=== PATIENT | male | born 1985 | race Caucasian/White ===

== ENCOUNTER 2017-06-26 19:56 | Emergency (ER) | payer OTHER ==
[~2017-06-26] VITALS: Ht 182.8 cm; Wt 81.6 kg
--- NOTE | ~2017-06-26 | EKG ---
[place], [place] ELECTROCARDIOGRAM REPORT NAME: GARCÍA LINDA UNIT #: [id number] ROOM: DOCTOR: CARMEN THRASHER BIRTHDATE: [birth year] DOS: 06/26/2017 TIME: 2000 hours. Normal sinus rhythm at 85 beats per minute. T-wave inversion in 1 to V3 was present and may be a normal variant; however, possibility. No previous tracing is available for comparison. Carmen Thrasher NP CM:EKGRPT:ELECTROCARDIOGRAM REPORT [id number] CARMEN THRASHER
[2017-06-26 20:21] LABS: BASO # 0.1 10*3/uL (0.0-0.1); BASO % 0.8 % (0.0-1.0); EOS # 0.5 10*3/uL (0.0-0.4); EOS % 7.8 % (1.0-4.0); HEMATOCRIT 26.4 % (42.0-52.0); HEMOGLOBIN 7.4 g/dl (14.0-18.0); LYMPH # 1.7 10*3/uL (1.3-4.4); LYMPH % 26.9 % (27.0-41.0); MEAN CELL VOLUME 66.5 fl (80.0-94.0); MEAN CORPUSCULAR HGB 18.6 pg (27.0-31.0); MEAN PLATELET VOLUME 10.1 fl (9.6-12.3); MONO # 0.9 10*3/uL (0.1-1.0); MONO % 14.2 % (3.0-9.0); NEUT # 3.2 10*3/uL (2.3-7.9); NEUT % 50.1 % (47.0-73.0); PLATELET COUNT AUTOMATED 428 10*3/uL (130-400); RED BLOOD COUNT 3.97 10*6/uL (4.50-5.90); RED CELL DISTRI WIDTH 17.9 % (0-14.5); WHITE BLOOD COUNT 6.4 10*3/uL (4.8-10.8)
[2017-06-26 20:38] LABS: ALBUMIN 3.7 gm/dl (3.1-4.5); ALKALINE PHOSPHATASE 58 U/L (45-117); BUN 11 mg/dl (7-24); CHLORIDE 104 mmol/L (98-107); CREATININE 1.15 mg/dL (0.70-1.30); POTASSIUM 3.5 mmol/L (3.5-5.1); SGOT/AST 9 IU/L (3-35); SGPT/ALT 16 U/L (12-78); SODIUM 137 mmol/L (136-145); TOTAL PROTEIN 8.2 gm/dL (6.4-8.2)
[2017-06-26 20:44] LABS: TROPONIN I < 0.015 ng/ml (<0.045)
[2017-06-26 21:36] VITALS: BP 146/73
[2017-06-26] MEDS ORDERED: FEROSUL325 MG PO (22:25)
== END 2017-06-26 23:42 | disposition home or self-care (01) ==
LOC: ED 19:56
PROVIDERS: Emergency Medicine Emergency Medical Services
DX: R55 Syncope and collapse (principal); D50.9 Iron deficiency anemia, unspecified; R51 Headache; Z87.19 Personal history of other diseases of the digestive system